=== PATIENT | male | born 2000 | race Caucasian/White ===

== ENCOUNTER 2021-12-03 21:56 | Emergency (ER) | payer OTHER, MEDICAID ==
[2021-12-03] MEDS ORDERED: Acetaminophen/HYDROcodone 325-5 MG Tab PO ONE (21:57)
[2021-12-03] MEDS ORDERED: Diphtheria,Pertussis(Acell),Tetanus Vaccine 0.5 ML Syringe IM ONE (21:57)
[2021-12-03] MEDS ORDERED: Ondansetron 4 MG Tab.DIS PO ONE (21:57)
== END 2021-12-04 00:35 | disposition home or self-care (01) ==
LOC: MW.ED 21:56
DX: S52.502A Unspecified fracture of the lower end of left radius, initial encounter for closed fracture (principal); Z23 Encounter for immunization; V49.40XA Driver injured in collision with unspecified motor vehicles in traffic accident, initial encounter; Y92.410 Unspecified street and highway as the place of occurrence of the external cause
CPT/HCPCS: 29125; 73110; 73610; 73620; 90471; 90715; 99284; A9270; 99283

== ENCOUNTER 2021-12-28 12:06 | Emergency (ER) | payer OTHER, MEDICAID ==
[2021-12-28 13:21] LABS: BLOOD UREA NITROGEN,BUN 9 mg/dL (7.0-18.0); CHLORIDE,CL 103 mmol/L (98-107); ESTIMATED GFR 130 mL/min (>60); GLUCOSE RANDOM 86 mg/dL (74-106); POTASSIUM,K 4.1 mmol/L (3.5-5.1); SODIUM,NA 141 mmol/L (136-148)
== END 2021-12-28 13:42 | disposition home or self-care (01) ==
LOC: MW.ED 12:06
DX: S06.9X0A Unspecified intracranial injury without loss of consciousness, initial encounter (principal); Z20.822 Contact with and (suspected) exposure to COVID-19; V49.40XA Driver injured in collision with unspecified motor vehicles in traffic accident, initial encounter; Y92.410 Unspecified street and highway as the place of occurrence of the external cause
CPT/HCPCS: 36415; 70450; 70450-26; 80053; 80305-QW; 80307; 84443; 85025; 99284; U0002

== ENCOUNTER 2021-12-30 21:03 | Emergency (ER) | payer MEDICAID ==
[2021-12-30 23:20] LABS: ACETAMINOPHEN <2.0 ug/mL; BLOOD UREA NITROGEN,BUN 9 mg/dL (7.0-18.0); CHLORIDE,CL 103 mmol/L (98-107); GLUCOSE RANDOM 98 mg/dL (74-106); POTASSIUM,K 3.7 mmol/L (3.5-5.1); SODIUM,NA 141 mmol/L (136-148)
[2021-12-30 23:22] LABS: ESTIMATED GFR 130 mL/min (>60)
== END 2021-12-31 02:40 ==
LOC: MW.ED 21:03
DX: R45.851 Suicidal ideations (principal); Z20.822 Contact with and (suspected) exposure to COVID-19; Z86.16 Personal history of COVID-19
CPT/HCPCS: 36415; 80053; 80143; 80179; 80305-QW; 80307; 81001; 83735; 84439; 84443; 84481; 85025; 93005; 99284; 99285; U0002

== ENCOUNTER 2022-07-18 12:13 | Emergency (ER) | payer MEDICAID ==
[2022-07-18] MEDS ORDERED: Lidocaine 2% Viscous Solution 15 ML UD PO STA (12:37)
[2022-07-18] MEDS ORDERED: Benzocaine 20% Topical Spray UD MUCMEM STA (12:37)
== END 2022-07-18 13:14 | disposition home or self-care (01) ==
LOC: MW.ED 12:13
DX: K08.89 Other specified disorders of teeth and supporting structures (principal); F17.210 Nicotine dependence, cigarettes, uncomplicated; Z86.16 Personal history of COVID-19; Z91.018 Allergy to other foods
CPT/HCPCS: 99283; A9270

== ENCOUNTER 2022-09-14 13:04 | Emergency (ER) | payer OTHER, MEDICAID | END 2022-09-14 13:45 | disposition home or self-care (01) | LOC: MW.ED 13:04 | DX: Z71.1 Person with feared health complaint in whom no diagnosis is made (principal); Z91.018 Allergy to other foods; Z86.16 Personal history of COVID-19 | CPT/HCPCS: 99282 ==

== ENCOUNTER 2023-11-18 08:02 | Emergency (ER) | payer MEDICAID | END 2023-11-18 08:34 | disposition home or self-care (01) | LOC: MW.ED 08:02 | DX: K00.6 Disturbances in tooth eruption (principal); K08.89 Other specified disorders of teeth and supporting structures; Z91.048 Other nonmedicinal substance allergy status; Z79.899 Other long term (current) drug therapy; Z86.16 Personal history of COVID-19 | CPT/HCPCS: 99282; 99283 ==